=== PATIENT | male | born 1970 | race Caucasian/White ===

== ENCOUNTER 2024-07-22 15:32 | Emergency (ER) | payer BC, SELFPAY ==
[2024-07-22 15:40] VITALS: BP 138/83; PULSE 62; RESP 18; TEMP 36.7; O2SAT 96; BMI 33.7
--- NOTE | 2024-07-22 15:58 | CRLHL7_ITS ---
For Patients: As a result of the Century Cures Act, medical imaging exams and procedure reports are released immediately into your electronic medical record. You may view this report before your referring provider. If you have questions, please contact your health care provider. Indication: Injury Technique: Three views of the right hand Comparison: None Findings: Normal alignment and mineralization. There is no acute fracture, dislocation or suspicious bony lesion. Metacarpal is noted deformity of the small finger, compatible with sequela of old trauma. Joints are preserved. Soft tissues are unremarkable. Impression: No acute osseous findings. Dictated by Meng Cain MD @ 07/22/2024 4:56:54 PM (Electronically Signed)
--- OUTSIDE RECORDS SUMMARY | 2024-07-22 16:25 | XMS_ITS | Clinical Summary ---
Author Organization [employer] [facility] Address [place], [place] [address] Care Team Providers Care Photo Finisher Name Role Phone Fanta Steele MD Primary Care Prov ider Allergies No known active allergies Medications Medication Sig Dispensed Refills Start Date End Date Status omeprazole (PRILOSEC) 20 mg Delayed-Release capsuleIndications: Gastroesophageal reflux disease, unspecified whether esophagitis present Take 1 Capsule (20 mg) by mouth once daily before a meal. 90 Capsule 3 03/25/2024 Active atorvastatin (LIPITOR) 20 mg tabletIndications:H yperlipidemia, unspecified hyperlipidemia type Take 1 Tablet (20 mg) by mouth at bedtime. 90 Tablet 3 03/25/2024 Active naloxone (Narcan) 4 mg/actuation nasal sprayIndications:Op ioid use disorder in remission Inhale 1 [place] into affected nostril(s) each time if needed for Patient Diff To Arouse or Resp Rate < 8 / min (Overdose). Additional doses may be given every 2 to 3 minutes until emergency medical assistance arrives. 2 Each 03/25/2024 Active FLUoxetine (PROZAC) 20 mg capsuleIndications: Anxiety,Depression, recurrent (HC) Take 3 Capsules (60 mg) by mouth once daily in the morning. 270 Capsule 3 06/17/2024 Active losartan (COZAAR) 100 mg tabletIndications:H TN (hypertension) Take 1 Tablet (100 mg) by mouth once daily. 30 Tablet 2 07/18/2024 Active busPIRone (BUSPAR) 10 mg tabletIndications:A nxiety,Depression, recurrent (HC) Take 1 tablet in AM and 1.5 tablets in PM for 3 days then take 1.5 tablets twice daily for 3 days, then take 1.5 tablets in AM and 2 tablets in PM for 3 days then take 2 tablets twice daily 120 Tablet 2 07/18/2024 Active Suboxone 8-2 mg sublingual filmIndications:Opi oid use disorder in remission Place 1 Film under the tongue once daily. 30 Film 07/18/2024 Active losartan (COZAAR) 50 mg tabletIndications:H TN (hypertension) Take 1 Tablet (50 mg) by mouth once daily. 30 Tablet 3 04/26/2024 4 Discontinu ed(Reorder (E-cancel not sent)) Suboxone 8-2 mg sublingual filmIndications:Opi oid use disorder in remission Place 1 Film under the tongue once daily. 30 Film 06/17/2024 Discontinu ed(Reorder (E-cancel not sent)) busPIRone (BUSPAR) 10 mg tabletIndications:A nxiety,Depression, recurrent (HC) Take 1/2 tab (5mg) twice daily for 5 days. Then 1/2 tab ( 5mg) in AM and 1 tablet ( 10mg) in PM for 5 days, Then 1 tablet ( 10mg) twice daily for 5 days. Then 1 tablet (10mg) in AM and 1.5 tabs (15mg) in PM for 5 days. Then 1.5 tablets (15mg) twice daily. If dizziness or other side effects occur at anytime during the increase, reduce back to last tolerated dose and continue with that dose for another 5 days before attempting to increase again. 65 Tablet 3 06/17/2024 Discontinu ed(Reorder (E-cancel not sent)) Active Problems Problem Noted Date Diagnosed Date Opioid use disorder in remission 03/25/2024 HTN (hypertension) 03/25/2024 Hyperlipidemia 03/25/2024 Gastroesophageal reflux disease 03/25/2024 Mood disorder 03/25/2024 Tobacco use disorder 03/25/2024 Cocaine use 03/25/2024 Encounters Date Type Department Care Team Description 07/22/2024 Nurse Triage [facility] [address] [place], [place] [id number] Fanta Steele MD Finger Injury (10 days ago- not improving ) 07/18/2024 7:45 AM [facility] Office Visit [facility] [address] [place] [address] Fanta Steele MD Medication Management (Feeling more tired then usual - has been working a lot of hours lately. / Depression is about the same ); Addiction 07/18/2024 Travel 06/17/2024 2:40 PM CDT Office Visit [facility] [address] [place] [address] Fanta Steele MD Addiction; Medication Management; Anxiety 06/17/2024 Travel 06/08/2024 Telephone [facility] [address] [place] [address] Fanta Steele MD Questions (appointment-med check ) 05/30/2024 Refill [facility] [address] [place] [address] Fanta Steele MD Refill Request (Suboxone) 04/29/[address] [address] Fanta Steele MD Refill Request (Suboxone 8-2 mg sublingual film) 04/26/2024 8:10 AM CDT Office Visit [facility] [address] [place] [address] Fanta Steele MD Follow Up (addiction/); Depression (Been out of depression medication - been having a hard time) 04/26/2024 Travel from Last 3 Months Immunizations Name Administration Dates Next Due COVID-19 vaccine ([employer] 30mcg/0.3mL) [facility] [place] 01/23/2021,12/28/2020 DTP 07/13/1974 Tdap 08/13/2021,05/17/2008 Tdap, Unspecified 10/09/2022 Social History Tobacco Use Types Packs/Day Years Used Date Smoking Tobacco: Every Day Cigarettes Smokeless Tobacco: Never Tobacco Cessation:Ready to Q uit: Not Asked; Counseling Given: Not Answered Alcohol Use Standard Drinks/Week Comments Not Currently 0 (1 standard drink = 0.6 oz pur e alcohol) PHQ-2 Answer Date Recorded PHQ-2 TOTAL SCORE 2 06/17/2024 Social Connections Answer Date Recorded Do you often feel lonely or isolated from those around you? 0 03/07/2024 Financial Resource Strain Answer Date R ecorded Difficulty of Paying Living Expenses 3 03/07/2024 Difficulty of Paying Living Expenses Not on file 03/07/2024 Food Insecurity Answer Date Recorded Do you worry your food will run out before you are able to buy more? 1 03/07/2024 Transportation Needs Answer Date Record ed Does lack of transportation keep you from medica l appointments? 1 03/07/2024 Does lack of transportation keep you from work, meetings or getting things that you need? 1 03/07/2024 Housing Stability Answer Date Recorded What is your housing situation today? 1 03/07/2024 Sex and Gender Information Value Date Recorded Sex Assigned at Not on file Gender Identity Not on file Sexual Orientation Not on file Obstetrics History Last Filed Vital Signs Vital Sign Reading Time Taken Comments Blood Pressure 170/93 07/18/2024 7:57 AM [facility] Has not yet taken medication today. Pulse 62 07/18/2024 7:57 AM [employer] [facility] [facility] Temperature 36.7 C (98 F) 03/07/2024 11:41 AM CDT Respiratory Rate 20 06/28/2015 2:30 AM [employer] [facility] [facility] Oxygen Saturation 97% 07/18/2024 7:5 7 AM [employer] [facility] Inhaled Oxygen Concentration - - Weight - - Height - - Body Mass Index - - Plan of Treatment Upcoming Encounters Date Type Department Care Team (Late st Contact Info) Description 08/22/2024 8:10 AM [employer] [facility] [facility] Office Visit [facility] [address] [place] [address] Fanta Steele MD [address] [place] [address] Health Maintenance Due Date Last Done Comments Pneumococcal series for age 6-64 (1 of 2 - PCV) 1974 HIV for age 15-65 1983 BMI (ht and wt on same day) for age 18+ 1986 Hepatitis C screening for age 18-79 1986 Colonoscopy through age 75 2013 Zoster (shingles) series for age 50+ (1 of 2) 2018 COVID-19 vaccine series (2023- season) 2024 01/23/2021, 12/28/2020 Influenza for age 50-64 04/24/2024 Depression screening for age 12+ 06/17/2025 06/17/20 Lipids for age 45-75 03/07/2029 03/07/2024 Tetanus booster 10/09/2032 10/09/2022, 07/25, 05/17/2008 Tdap Completed 10/09/2022, 07/25, 05/17/2008 Procedures Procedure Name Priority Date/Time Associated Diagnosis Comments BASIC METABOLIC PANEL Routine 07/18/2024 9:04 AM [facility] HTN (hypertension) DRUG MONITORING TEMPLATE ([facility] REFLEX ONLY) Routine 06/17/2024 2:50 PM CDT DRUG MONITORING GABAPENTIN QUANTITATIVE URINE ([facility]) Routine 06/17/2024 2:50 PM CDT Opioid use disorder in remission DRUG MONITORING, BUPRENORPHINE, WITH CONFIRMATION, INCLUDES NALOXONE, URINE ([facility]) Routine 06/17/2024 2:50 PM CDT Opioid use disorder in remission DRUG MONITORING, FENTANYL, WITH CONFIRMATION, URINE ([facility]) Routine 06/17/2024 2:50 PM CDT Opioid use disorder in remission DRUG MONITORING, PANEL 7 WITH CONFIRMATION, URINE ([facility]) Routine 06/17/2024 2:50 PM CDT Opioid use disorder in remission BASIC METABOLIC PANEL Routine 04/26/2024 8:53 AM CDT HTN (hypertension) COMPLIANCE DRUG ANALYSIS Routine 04/26/2024 8:47 AM CDT Opioid use disorder in remission LIPID PANEL Routine 03/07/2024 12:41 PM CDT Chest pain in adult Screening cholesterol level from Last 3 Months or Most Recently Relevant to Health Maintenance Results * (ABNORMAL) BASIC METABOLIC PANEL (07/18/2024 9:04 AM [facility]) Only the most recent of2 resultswithin the time period is included. GLUCOSE 104(H) 65 - 99 mg/dL [facility] Comment: Fasting reference interval For someone without known diabetes, a glucose value between 100 and 125 mg/dL is consistent with prediabetes and should be confirmed with a follow-up test. UREA NITROGEN (BUN) 20 7 - 25 mg/dL [facility] CREATININE 0.89 0.70 - 1.30 mg/dL [facility] EGFR 101 > OR = 60 mL/min/1. 73m2 [facility] BUN/CREATININE RATIO SEE NOTE: 6 - 22 (calc) [facility] Comment: Not Reported: BUN and Creatinine are within reference range. SODIUM 138 135 - 146 mmol/L [facility] POTASSIUM 4.9 3.5 - 5.3 mmol/L [facility] CHLORIDE 103 98 - 110 mmol/L [facility] CARBON DIOXIDE 27 20 - 32 mmol/L [facility] ELECTROLYTE BALANCE 8 7 - 17 mmol/L (calc) [facility] CALCIUM 9.3 8.6 - 10.3 mg/dL [facility] Blood BLOOD SPECIMEN / Unknown 07/18/2024 9:04 AM [facility] 07/18/2024 9:05 AM [facility] Narrative [facility] - 07/19/2024 5:16 AM [facility] FASTING:YES FASTING: YES Fanta Steele MD CHEMISTRY [facility] [address] [place] [address], [facility] [address] [place] [address] * DRUG MONITORING TEMPLATE ([facility] REFLEX ONLY) (06/17/2024 2:50 PM CDT) DRUG MONITORING TEMPLATE NOTES AND COMMENTS [facility] Comment: This drug testing is for medical treatment only. Analysis was performed as non-forensic testing and these results should be used only by healthcare providers to render diagnosis or treatment, or to monitor progress of medical conditions. LDT Notes: Confirmation tests were developed and their analytical performance characteristics have been determined by [facility]. It has not been cleared or approved by the FDA. This assay has been validated pursuant to the CLIA regulations and is used for clinical purposes. Healthcare Providers needing Interpretation assistance, please contact us at [phone] ( ) M-F, 8am to 10pm EST 06/17/2024 2:50 PM CDT 06/17/2024 2:52 PM CDT Fanta Steele MD LABORATORY Performing Organization Address City/[facility]/ZIP Co de Phone Number [facility] [address] [place] [address], [place] [phone] [facility] [address] [place] [address] * DRUG MONITORING, FENTANYL, WITH CONFIRMATION, URINE ([facility]) (06/17/2024 2:50 PM CDT) FENTANYL NEGATIVE <0.5 ng/mL [facility] Urine URINE SPECIMEN / Unknown 06/17/2024 2:50 PM CDT 06/17/2024 2:52 PM CDT Fanta Steele MD SEND OUTS Performing Organization Address [facility]/ZIP Co de Phone Number [facility] [address] [place] [address], [place] [phone] [facility] [address] [place] [address] * DRUG MONITORING, GABAPENTIN, QUANTITATIVE, URINE ([facility]) (06/17/2024 2:50 PM CDT) GABAPENTIN NEGATIVE <1000 ng/mL [facility] GABAPENTIN COMMENTS [facility] Comment:See LDT Notes Urine URINE SPECIMEN / Unknown 06/17/2024 2:50 PM CDT 06/17/2024 2:52 PM CDT Fanta Steele MD URINE Performing Organization Address [facility] Co de Phone Number [facility] [address] [place] [address], [facility] [address] [place] [address] * DRUG MONITORING, PANEL 7 WITH CONFIRMATION, URINE ([facility]) (06/17/2024 2:50 PM CDT) ALCOHOL METABOLITES NEGATIVE <500 ng/mL [facility] AMPHETAMINES NEGATIVE <500 ng/mL [facility] BARBITURATES NEGATIVE <300 ng/mL [facility] BENZODIAZEPINES NEGATIVE <100 ng/mL [facility] COCAINE METABOLITE NEGATIVE <150 ng/mL [facility] 6 ACETYLMORPHINE NEGATIVE <10 ng/mL [facility] MARIJUANA METABOLITE NEGATIVE <20 ng/mL [facility] METHADONE METABOLITE NEGATIVE <100 ng/mL [facility] OPIATES NEGATIVE <100 ng/mL [facility] OXYCODONE NEGATIVE <100 ng/mL [facility] DRUG COMPLIANCE CREATININE 41.2 > or = 20.0 mg/dL [facility] PH URINE 7.6 4.5 - 9.0 [facility] OXIDANT NEGATIVE <200 mcg/mL [facility] Urine URINE SPECIMEN / Unknown 06/17/2024 2:50 PM CDT 06/17/2024 2:52 PM CDT Fanta Steele MD URINE [facility] [address] [place] [address], [place] [phone] [facility] [address] [place] [address] * DRUG MONITORING, BUPRENORPHINE, WITH CONFIRMATION, INCLUDES NALOXONE, URINE ([facility]) (06/17/2024 2:50 PM CDT) BUPRENORPHINE NEGATIVE <5 ng/mL [facility] Urine URINE SPECIMEN / Unknown 06/17/2024 2:50 PM CDT 06/17/2024 2:52 PM CDT Fanta Steele MD URINE [facility] [address] [place] [address], [place] [phone] [facility] [address] [place] [address] * (ABNORMAL) COMPLIANCE DRUG ANALYSIS (04/26/2024 8:47 AM CDT) 6-MONOACETYL MORPHINE NEG NEG ng/mL 04/28/2024 10:46 AM T [facility] AMPHETAMINE URINE NEG <=500 ng/mL 04/28/2024 10:46 AM CDT [facility] BARBITURATE URINE NEG <=200 ng/mL 04/28/2024 10:46 AM T [facility] BENZODIAZEPINE URINE NEG <=100 ng/mL 04/28/2024 10:46 AM CDT [facility] BUPRENORPHRINE URINE POS(A) <=5 ng/mL 12/2023 10:46 AM T [facility] COCAINE METAB URINE NEG <=300 ng/mL 04/28/2024 10:46 AM T [facility] ETHYLGLUCURONIDE URINE NEG <=250 ng/mL 04/28/2024 10:46 AM T [facility] FENTANYL URINE NEG <=4 ng/mL 04/28/2024 10:46 AM T [facility] METHADONE URINE NEG <=300 ng/mL 04/28/2024 10:46 AM [facility] OPIATES URINE NEG <=300 ng/mL 04/28/2024 10:46 AM [facility] OXYCODONE URINE NEG <=100 ng/mL 04/28/2024 10:46 AM [facility] PROPOXYPHENE URINE NEG <=300 ng/mL 04/28/2024 10:46 AM [facility] THC 50 URINE NEG <=50 ng/mL 04/28/2024 10:46 AM [facility] TRAMADOL NEG <=200 ng/mL 04/28/2024 10:46 AM [facility] PH URINE 7.9(H) 5.0 - 7.0 04/28/2024 10:46 AM [facility] CREAT UR 61 >=20 mg/dL 04/28/2024 10:46 AM [facility] MASS SPECTROMETRY URINE See Below 04/28/2024 10:46 AM [facility] Comment:Acetaminophen, Bupre norphine metabolite, Hydrocodone and Norhydrocodone present. Urine URINE SPECIMEN / Unknown Non-Blood / Unknown 04/26/2024 8:47 AM [facility] 04/26/2024 8:47 AM [facility] - 04/28/2024 10:46 AM [facility] Current Outpatient Medications: atorvastatin (LIPITOR) 20 mg tablet, Take 1 Tablet (20 mg) by mouth at bedtime. FLUoxetine 20 mg tablet, Take 1 Tablet (20 mg) by mouth once daily. losartan (COZAAR) 25 mg tablet, Take 1 Tablet (25 mg) by mouth once daily. naloxone (Narcan) 4 mg/actuation nasal spray, Inhale 1 [place] into affected nostril(s) each time if needed for Patient Diff To Arouse or Resp Rate < 8 / min (Overdose). Additional doses may be given every 2 to 3 minutes until emergency medical assistance arrives. omeprazole (PRILOSEC) 20 mg Delayed-Release capsule, Take 1 Capsule (20 mg) by mouth once daily before a meal. Suboxone 8-2 mg sublingual film, Place 1 Film under the tongue once daily. Place film under the tongue until completely dissolved. Do not chew or swallow film. No current facility-administered medications for this visit. As of 04/26/2024 Release to patient->Immediate Fanta Steele MD URINE [address] [place] [address], * (ABNORMAL) LIPID PANEL (03/07/2024 12:41 PM CDT) [facility] CHOLESTEROL,TOTAL 233(H) 100 - 199 mg/dL 03/08/2024 5:17 AM CDT [facility] Comment: Cholesterol, Total Reference Ranges Desirable <200 mg/dL Borderline 200-239 mg/dL High >=240 mg/dL TRIGLYCERIDES 209(H) <150 mg/dL 03/08/2024 5:17 AM CDT [facility] HDL CHOLESTEROL 37(L) >40 mg/dL 5:17 AM CDT [facility] NON-HDL CHOLESTEROL 196(H) <145 mg/dl 03/08/2024 5:17 AM CDT [facility] CHOL/HDL RATIO 6.30(H) <4.50 03/08/2024 5:17 AM CDT [facility] LDL CHOLESTEROL 154(H) <=130 mg/dL 03/08/2024 5:17 AM CDT [facility] VLDL CHOLESTEROL 42(H) <=30 mg/dL 03/08/2024 5:17 AM CDT [facility] PROVIDER ORDERED STATUS RANDOM 03/08/2024 5:17 AM CDT [facility] Blood BLOOD SPECIMEN / Unknown Venipuncture / Unknown 03/07/2024 12:41 PM CDT 03/07/2024 12:42 PM CDT Fanta Steele MD CHEMISTRY [facility] [address] [place] [address], from Last 3 Months or Most Recently Relevant to Health Maintenance Care Teams Photo Finisher Relationship Specialty Start Date End Date Fanta Steele MD [address] [place], [place] [id number] PCP - General Family Practice 03/07/24
--- NOTE | 2024-07-22 16:52 | ED.UPPEXIN ---
HPI - Extremity Injury (Upper) General Date Seen: 07/22/24 Chief Complaint: Extremity Pain/Injury, Upper Stated Complaint: injured rt hand Time Seen by Provider: 07/22/24 15:34 Source: patient Mode of arrival: ambulatory Limitations: no limitations History of Present Illness HPI narrative: Patient is a 54-year-old male presenting to the emergency department for injury to his right middle finger. States some lives this he injured the finger while at work and dislocated at the MCP joint. He was able to relocate it on his own and initially there was loss swelling but pain has been improving. Then 2 days ago while working again he was holding up a piece of steel when it slipped and pulled on his same finger. Since then he has been having worsening pain to the finger worse at the middle finger MCP joint. Does have some pain with movement. No other injuries noted. Related Data Home Medications ?Medication ?Instructions ?Recorded ?Confirmed atorvastatin .ROUTE 07/22/24 fluoxetine 40 mg capsule 40 mg PO DAILY 07/22/24 07/22/24 Allergies Allergy/AdvReac Type Severity Reaction Status Date / Time No Known Drug Allergies Allergy Verified 07/22/24 15:46 Review of Systems Narrative: Pertinent systems reviewed and were negative unless stated in HPI Exam Narrative: Exam Narrative: Const: Well-nourished, Well-developed, in no distress Eyes: PERRL, no conjunctival injection, and symmetrical lids HENT: Atraumatic external nose and ears. Moist mucous membranes. Removed MSK:Extremities w/o deformity, mild decreased range of motion to the right middle finger at the MCP joint. No tenderness noted with full extension, there is some mild swelling seen throughout the finger. Note tenderness noted to palpation of the volar aspect of the middle finger Skin: Warm, Dry. No rashes or lesions. Neuro: Normal Muscle tone, No focal neurological deficits. Psych: Awake, Alert, & Oriented x3. Appropriate mood and affect. Const: Vital Signs, click to edit/add: Vital Signs - 24 hr 07/22/24 15:40 Temperature 98.0 F Pulse Rate [Right Pulse Oximeter] 62 Respiratory Rate 18 Blood Pressure [Ri ght Upper Arm] 138/83 Pulse Oximetry 96 Oxygen Delivery Me thod Room Air Course Vital Signs Vital signs: Initial Vital Signs Temperature 98.0 F 07/22/24 15:40 Temperature Source Temporal Artery Scan 07/22/24 15:40 Pulse Rate 62 07/22/24 15:40 Pulse Rhythm Regular 07/22/24 15:40 Pulse Strength 3+ Normal 07/22/24 15:40 Respiratory Rate 18 07/22/24 15:40 Blood Pressure 138/83 07/22/24 15:40 Blood Pressure Mean 101 07/22/24 15:40 Blood Pressure Position Sitting 07/22/24 15:40 Pulse Oximetry 96 07/22/24 15:40 Oxygen Delivery Method Room Air 07/22/24 15:40 Vital Signs Temperature 98.0 F 07/22/24 15:40 Pulse Rate 62 07/22/24 15:40 Respiratory Rate 18 07/22/24 15:40 Blood Pressure 138/83 07/22/24 15:40 Pulse Oximetry 96 07/22/24 15:40 Oxygen Delivery Method Room Air 07/22/24 15:40 Temperature 98.0 F 07/22/24 15:40 Pulse Rate 62 07/22/24 15:40 Respiratory Rate 18 07/22/24 15:40 Blood Pressure 138/83 07/22/24 15:40 Pulse Oximetry 96 07/22/24 15:40 Oxygen Delivery Method Room Air 07/22/24 15:40 MDM - Extremity Injury (Upper) Imaging Data Right hand x-ray: Attestation: I have reviewed the pertinent imaging results. Radiologist's impression: No acute osseous findings. Dictated by Meng Cain MD @ 07/22/2024 4:56:54 PM Discharge Plan Discharge Clinical Impression: Finger sprain Qualifiers: Encounter type: initial encounter Finger: middle finger Sprain of finger site: metacarpophalangeal joint Laterality: right Qualified Code(s): S63.652A - Sprain of metacarpophalangeal joint of right middle finger, initial encounter Patient Disposition: Home, Self-Care Condition: Stable Instructions: Finger Sprain (ED) Additional Instructions: Your appears to have sprained your middle finger. Keep it jerrica tape until symptoms improve. Take Tylenol and ibuprofen for pain Prescriptions: No Action fluoxetine 40 mg capsule 40 mg PO DAILY atorvastatin .ROUTE Follow Up/Referrals: Fanta Steele MD [Primary Care Provider] - Stand Alone [facility] Instructions
== END 2024-07-22 17:22 | disposition home or self-care (01) ==
PROVIDERS: Emergency Provider Student in an Organized Health Care Education/Training Program; PCP Student in an Organized Health Care Education/Training Program
DX: S63.652A Sprain of metacarpophalangeal joint of right middle finger, initial encounter (principal); X50.1XXA Overexertion from prolonged static or awkward postures, initial encounter
CPT/HCPCS: 73130; 99283

== ENCOUNTER 2024-10-25 12:37 | Emergency (ER) | payer BC, SELFPAY ==
[2024-10-25 12:42] VITALS: BP 130/77; PULSE 78; RESP 18; TEMP 36.1; O2SAT 97; BMI 35.2
--- NOTE | 2024-10-25 12:44 | ED.GENADULT ---
HPI - General Adult General Chief complaint: Back Injury/Pain Stated complaint: Back pain Time Seen by Provider: 10/25/24 12:44 History of Present Illness HPI narrative: Over exerted self-last week and over the weekend feeling tired and a little sore. Today woke up and left knee hurts, right shoulder, lower back, and felt as if Achillies tendon hurts. having an ache and dull pain in the LLQ for the past 2 days . 54-year-old man presenting to the emergency department with concern of radiating low back pain. 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 Rested over the weekend or least the next day though was marked increase in back pain including sharp and burning pain down the back of his right buttock to back find to upper calf. Next morning similar feelings in the left. Has also begun to feel more instability in the left knee. Has a history of what sounds like cleanout, meniscal injury?. Also some reconstruction history in the right knee. Once he lays down on the bed exam bed he has more just pain in the upper buttock palpate to the left SI joint area. What might have pushed him further to come in is a history of right Achilles disruption and as this pain radiated down or he he started to feel like maybe this was leading loose again. Really did not want to go through that issue again. Related Data Home Medications ?Medication ?Instructions ?Recorded ?Confirmed atorvastatin .Route 07/22/24 fluoxetine 40 mg capsule 40 mg PO DAILY 07/22/24 10/25/24 buprenorphine 8 mg-naloxone 2 mg 1 film sublingual DAILY 10/25/24 10/25/24 sublingual film losartan 100 mg tablet mg DAILY 10/25/24 omeprazole 20 mg capsule,delayed 20 mg PO DAILY 10/25/24 10/25/24 release Allergies Allergy/AdvReac Type Severity Reaction Status Date / Time No Known Drug Allergies Allergy Verified 10/25/24 12:48 Review of Systems Status of ROS: Reports: 6 or more systems reviewed and unremarkable except as noted in History and below [facility] Social History Smoking Status: Current every day smoker What tobacco products do you use: cigarettes How often do you have a drink containing alcohol: never How often do you have six or more drinks on one occasion: Never AUDIT-C Alcohol total score: 0 Non-prescribed substance use: denies use service: No Exam Narrative: Exam Narrative: Very pleasant. Changes since to sitting without significant difficulty. Little more sore to lay down I think. Tender in the right SI joint. Seems a little weaker hesitant with flexion of the right knee. Sore also with left SI joint. Negative Bladimir's. Negative straight leg raise bilaterally. I do not appreciate an effusion to his knees though clearly with postoperative changes. No instability appreciated to varus or valgus stressors of the left knee. Normal Teena's. Mildly uncomfortable to left mid abdominal palpation. Const: Vital Signs, click to edit/add: Vital Signs - 24 hr 10/25/24 12:42 Temperature 97.0 F L Pulse Rate [Pulse Oximeter] 78 Respiratory Rate 18 Blood Pressure [Ri ght Upper Arm] 130/77 Pulse Oximetry 97 Oxygen Delivery Me thod Room Air Documenting provider has reviewed patient's vital signs: yes Course Vital Signs Vital signs: Initial Vital Signs Temperature 97.0 F L 10/25/24 12:42 Temperature Source Temporal Artery Scan 10/25/24 12:42 Pulse Rate 78 10/25/24 12:42 Respiratory Rate 18 10/25/24 12:42 Blood Pressure 130/77 10/25/24 12:42 Blood Pressure Mean 94 10/25/24 12:42 Blood Pressure Position Sitting 10/25/24 12:42 Pulse Oximetry 97 10/25/24 12:42 Oxygen Delivery Method Room Air 10/25/24 12:42 Vital Signs Temperature 97.0 F L 10/25/24 12:42 Pulse Rate 78 10/25/24 12:42 Respiratory Rate 18 10/25/24 12:42 Blood Pressure 130/77 10/25/24 12:42 Pulse Oximetry 97 10/25/24 12:42 Oxygen Delivery Method Room Air 10/25/24 12:42 Temperature 97.0 F L 10/25/24 12:42 Pulse Rate 78 10/25/24 12:42 Respiratory Rate 18 10/25/24 12:42 Blood Pressure 130/77 10/25/24 12:42 Pulse Oximetry 97 10/25/24 12:42 Oxygen Delivery Method Room Air 10/25/24 12:42 Medical Decision Making MDM Narrative Medical decision making narrative: Distribution of described symptoms suggest a sciatica. Admittedly this is a little nonspecific of a diagnosis. Seems to have concurrent sacroiliac joint pain and what I think might be compensatory left knee pain. Without specific trauma I do not think we need to do any imaging here today. Would offer steroids and recommending anti-inflammatory otherwise. Possibly Flexeril. Did also discuss opiate pain medication which he thought might be helpful Upon discharge, flag raised for history of Suboxone and apparently filled short-acting opiate yesterday; the latter he noted unfamiliarity. Ultimately discharged with prednisone and Flexeril and recommendations for ibuprofen acetaminophen. See patient discharge plan for further discussion See handout on low back pain, herniated disc and sacroiliac pain. You seem to have elements of all of these. I am not convinced that you have a herniated disc but the exercises I think are relevant. You do seem to have something in the continuum of a sciatica. With a little food, consider taking ibuprofen regularly dosed over the next few days maybe 600 mg 3 times daily or alternatively up to 500 mg naproxen 2 times daily. Either of these can be combined with up to 1000 mg of acetaminophen per dose. From [facility], I am also prescribing a course of prednisone and Flexeril a ?muscle relaxer? really functioning more as a bit of a sedative. <del>Also</del> <del>if</del> <del>really</del> <del>needed</del> <del>some</del> <del>Percocet,</del> <del>an</del> <del>opiate.</del> <del>Keep</del> <del>in</del> <del>mind</del> <del>that</del> <del>each</del> <del>tablet</del> <del>contains</del> <del>325</del> <del>mg</del> <del>of</del> <del>acetaminophen.</del> If your pain is continuing beyond a week, I would follow up for re-evaluation. Physical therapy might be beneficial. Medical Records Medical records reviewed: Yes I reviewed the patient's medical records Discharge Plan Discharge Clinical Impression: Lumbar radiculopathy, Sacroiliac joint pain Patient Disposition: Home, Self-Care Condition: Stable Additional Instructions: See handout on low back pain, herniated disc and sacroiliac pain. You seem to have elements of all of these. I am not convinced that you have a herniated disc but the exercises I think are relevant. You do seem to have something in the continuum a sciatica. With a little food, consider taking ibuprofen regularly dosed over the next few days maybe 600 mg 3 times daily or alternatively up to 500 mg naproxen 2 times daily. Either of these can be combined with up to 1000 mg of acetaminophen per dose. From [facility], I am also prescribing a course of prednisone and Flexeril a ?muscle relaxer? really functioning more as a bit of a sedative. Also if really needed some Percocet, an opiate. Keep in mind that each tablet contains 325 mg of acetaminophen. If your pain is continuing beyond a week, I would follow up for re-evaluation. Physical therapy might be beneficial. Prescriptions: No Action fluoxetine 40 mg capsule 40 mg PO DAILY atorvastatin .Route omeprazole 20 mg capsule,delayed release(DR/EC) 20 mg PO DAILY losartan 100 mg tablet DAILY buprenorphine-naloxone 8-2 mg film 1 film sublingual DAILY Follow Up/Referrals: Fanta Steele MD [Primary Care Provider] - Stand Alone Forms: [employer] Info Instructions
--- OUTSIDE RECORDS SUMMARY | 2024-10-25 13:28 | XMS_ITS | Clinical Summary ---
Author Organization [facility] Address [address] [place] [id number] Care Team Providers Care Supervisor Cured Meats Name Role Phone Fanta Steele MD Primary Care Prov ider Allergies No known active allergies Medications omeprazole (PRILOSEC) 20 mg Delayed-Release capsuleIndications :Gastroesophageal reflux disease, unspecified whether esophagitis present Take 1 Capsule (20 mg) by mouth once daily before a meal. 90 Capsule 3 03/25/20 24 Active atorvastatin (LIPITOR) 20 mg tabletIndications: Hyperlipidemia, unspecified hyperlipidemia type Take 1 Tablet (20 mg) by mouth at bedtime. 90 Tablet 3 03/25/20 24 Active naloxone (Narcan) 4 mg/actuation nasal sprayIndications:O pioid use disorder in remission Inhale 1 [place] into affected nostril(s) each time if needed for Patient Diff To Arouse or Resp Rate < 8 / min (Overdose). Additional doses may be given every 2 to 3 minutes until emergency medical assistance arrives. 2 Each 03/25/20 24 Active FLUoxetine (PROZAC) 20 mg capsuleIndications :Anxiety,Depressio n, recurrent Take 3 Capsules (60 mg) by mouth once daily in the morning. 270 Capsule 3 06/17/20 24 Active Additional Information Patient taking differently:60 mg Oral Q AM,BiD, Reported on 10/24/2024 acetaminophen (TYLENOL EXTRA STRGTH) 500 mg tablet Take 500-1,000 mg by mouth every 6 hours if needed. 10/09/19 23 Active busPIRone (BUSPAR) 10 mg tabletIndications: Anxiety,Depression , recurrent Take 2 Tablets (20 mg) by mouth two times daily. 120 Tablet 3 08/22/20 24 Active buprenorphine-nalo xone (SUBOXONE) 8-2 mg sublingual filmIndications:Op ioid use disorder in remission Place 1 Film under the tongue once daily. Place film under the tongue until completely dissolved. Do not chew or swallow film. 30 Each 10/27/19 25 Active losartan (COZAAR) 100 mg tabletIndications: HTN (hypertension) Take 1 Tablet (100 mg) by mouth once daily. 60 Tablet 10/25/19 25 Active losartan (COZAAR) 100 mg tabletIndications: HTN (hypertension) Take 1 Tablet (100 mg) by mouth once daily. 30 Tablet 2 07/18/20 24 025 Discontin ued(Reord er (E-cancel not sent)) Suboxone 8-2 mg sublingual filmIndications:Op ioid use disorder in remission Place 1 Film under the tongue once daily. 8 Film 09/20/19 25 025 Discontin ued(*Med complete/ Regimen complete/ Level of care change) buprenorphine-nalo xone (SUBOXONE) 8-2 mg sublingual filmIndications:Op ioid use disorder in remission Place 1 Film under the tongue once daily. Place film under the tongue until completely dissolved. Do not chew or swallow film. 30 Each 09/28/19 25 025 Discontin ued(Reord er (E-cancel not sent)) Active Problems Problem Noted Date Diagnosed Date Opioid use disorder in remission 03/25/2024 HTN (hypertension) 03/25/2024 Hyperlipidemia 03/25/2024 Gastroesophageal reflux disease 03/25/2024 Mood disorder 03/25/2024 Tobacco use disorder 03/25/2024 Cocaine use 03/25/2024 Encounters Date Type Department Care Team Description 10/24/2024 8:45 AM [employer]IPLE [employer] Phone Office Visit [facility] [address] [place] [address] Ulysses Dalton MD Medication Management (suboxone ) 10/24/2024 Travel 10/21/2024 Travel 09/28/2024 7:55 AM [employer] Office Visit [facility] [address] [place] [address] Ulysses Dalton MD Medication Management (suboxone ); Fatigue 09/28/2024 Travel 09/21/2024 Telephone [facility] [address] [place] [address] Ulysses Dalton MD Prior Authorization (Suboxone 8-2 mg sublingual film APPROVED 09/21/2024 to 09/21/2025) 09/19/2024 Refill [facility] [address] [place] [address] Fanta Steele MD Refill Request (Suboxone ) 08/22/2024 8:10 AM [employer] Phone Office Visit [facility] [address] [place] [address] Fanta Steele MD Medication Management (Suboxone,); Blood Pressure (No home reading ) 08/22/2024 Travel 08/19/2024 Telephone [facility] [address] [place] [address] Fanta Steele MD Questions (Suboxone ) 08/19/2024 Refill [facility] [address] [place] [address] Fanta Steele MD Refill Request (SUBOXONE) 08/18/2024 Refill [facility] [address] [place] [address] Fanta Steele MD Refill Request (Suboxone) from Last 3 Months Immunizations Name Administration Dates Next Due COVID-19 vaccine ([employer] 30mcg/0.3mL) P FMDV 01/23/2021,12/28/2020 DTP 07/13/1974 Tdap 08/13/2021,05/17/2008 Tdap, Unspecified 10/09/2022 Social History Tobacco Use Types Packs/Day Years Used Date Smoking Tobacco: Every Day Cigarettes Smokeless Tobacco: Never Tobacco Cessation:Ready to Q uit: Not Asked; Counseling Given: Not Answered Alcohol Use Standard Drinks/Week Comments Not Currently 0 (1 standard drink = 0.6 oz pur e alcohol) PHQ-2 Answer Date Recorded PHQ-2 TOTAL SCORE 3 09/28/2024 Social Connections Answer Date Recorded Do you [...] is your housing situation today? 1 03/07/2024 Utilities Answer Date Recorded Do you have trouble paying f or utilities (for example, heat, electricity, water, phone)? 1 03/07/2024 Sex and Gender Information Value Date Recorded Sex Assigned at Not on file Legal Sex Male 6:59 AM [employer]IPLE VAL[employer] Gender Identity Not on file Sexual Orientation Not on file Obstetrics History Last Filed Vital Signs Vital Sign Reading Time Taken Comments Blood Pressure 150/84 09/28/2024 8:07 AM [employer] Pulse 65 09/28/2024 7:59 AM [employer]LE [employer] Temperature 36.7 C (98 F) 03/07/2024 11:41 AM CDT Respiratory Rate 20 06/28/2015 2:30 AM [employer] Oxygen Saturation 98% 09/28/2024 7:59 AM [employer]LE [employer] Inhaled Oxygen Concentration - - Weight 98.2 kg (216 lb 6.4 oz) 09/28/2024 7:59 A M [employer] Height - - Body Mass Index - - Plan of Treatment Health Maintenance Due Date Last Done Comments HIV for age 15-65 1983 BMI (ht and wt on same day) for age 18+ 1986 Hepatitis C screening for age 18-79 1986 Pneumococcal series for age 50+ (1 of 2 - PCV) 1987 Colonoscopy through age 75 2013 Zoster (shingles) series for age 50+ (1 of 2) 2018 COVID-19 vaccine series ( season) 2024 01/23/2021, 12/28/2020 Influenza for age 50-64 04/24/2024 Depression screening for age 12+ 09/28/2025 09/28/19, 06/17/2024 Lipids for age 45-75 03/07/2029 03/07/2024 Tetanus booster 10/09/2032 10/09/2022, 07/25, 05/17/2008 Tdap Completed 10/09/2022, 07/25, 05/17/2008 Procedures Procedure Name Priority Date/Time Associated Diagnosis Comments BASIC METABOLIC PANEL Routine 09/28/2024 8:34 AM [employer]LE [employer] HTN (hypertension) COMPLIANCE DRUG ANALYSIS Routine 09/28/2024 8:33 AM [employer] Opioid use disorder in remission LIPID PANEL Routine 03/07/2024 12:41 PM CDT Chest pain in adult Screening cholesterol level from Last 3 Months or Most Recently Relevant to Health Maintenance Results * BASIC METABOLIC PANEL (09/28/2024 8:34 AM TRIPLE VALVE TE[employer]) GLUCOSE 98 65 - 99 mg/dL [facility] Comment: Fasting reference interval UREA NITROGEN (BUN) 18 7 - 25 mg/dL [facility] CREATININE 0.85 0.70 - 1.30 mg/dL [facility] EGFR 102 > OR = 60 mL/min/1. 73m2 [facility] BUN/CREATININE RATIO SEE NOTE: 6 - 22 (calc) [facility] Comment: Not Reported: BUN and Creatinine are within reference range. SODIUM 139 135 - 146 mmol/L [facility] POTASSIUM 4.9 3.5 - 5.3 mmol/L [facility] CHLORIDE 102 98 - 110 mmol/L [facility] CARBON DIOXIDE 28 20 - 32 mmol/L [facility] ELECTROLYTE BALANCE 9 7 - 17 mmol/L (calc) [facility] CALCIUM 9.4 8.6 - 10.3 mg/dL [facility] Blood BLOOD SPECIMEN / Unknown 09/28/2024 8:34 AM [employer]IPLE VALVE TE[employer] 09/28/2024 8:34 AM [employer]IPLE VALVE [employer] Ulysses Dalton MD CHEMISTRY Final Result [facility] [address] [place] [address], [facility] [address] [place] [address] * (ABNORMAL) COMPLIANCE DRUG ANALYSIS (09/28/2024 8:33 AM TRIPLE VALVE TESTER) 6-MONOACETYL MORPHINE NEG NEG ng/mL 10/03/2024 12:16 PM [facility] AMPHETAMINE URINE NEG <=500 ng/mL 10/03/2024 12:16 PM [facility] BARBITURATE URINE NEG <=200 ng/mL 10/03/2024 12:16 PM [facility] BENZODIAZEPINE URINE NEG <=100 ng/mL 10/03/2024 12:16 PM [facility] BUPRENORPHRINE URINE POS(A) <=5 ng/mL 09/24 12:16 PM [facility] COCAINE METAB URINE NEG <=300 ng/mL 10/03/2024 12:16 PM [facility] ETHYLGLUCURONIDE URINE NEG <=250 ng/mL 10/03/2024 12:16 PM [facility] FENTANYL URINE NEG <=4 ng/mL 10/03/2024 12:16 PM [facility] METHADONE URINE NEG <=300 ng/mL 10/03/2024 12:16 PM [facility] OPIATES URINE NEG <=300 ng/mL 10/03/2024 12:16 PM [facility] OXYCODONE URINE NEG <=100 ng/mL 10/03/2024 12:16 PM [facility] PROPOXYPHENE URINE NEG <=300 ng/mL 10/03/2024 12:16 PM [facility] THC 50 URINE NEG <=50 ng/mL 10/03/2024 12:16 PM [facility] TRAMADOL NEG <=200 ng/mL 10/03/2024 12:16 PM [facility] PH URINE 6.9 5.0 - 7.0 10/03/2024 12:16 PM [facility] CREAT UR 109 >=20 mg/dL 10/03/2024 12:16 PM [facility] MASS SPECTROMETRY URINE See Below 10/03/2024 12:16 PM [facility] Comment:Buprenorphine metabo lites present. Urine URINE SPECIMEN / Unknown Non-Blood / Unknown 09/28/2024 8:33 AM [employer]LE VALVE [employer] 09/28/2024 8:33 AM [facility] - 10/03/2024 12:16 PM [employer]IPLE [employer]VE TE[employer] Release to patient->Immediate us Ulysses Dalton MD URINE Final Result [facility] [address] [facility] [address] [place] [address], * (ABNORMAL) LIPID PANEL (03/07/2024 12:41 PM CDT) CHOLESTEROL,TOTAL 233(H) 100 - 199 mg/dL 03/08/2024 5:17 AM T [facility] [employer] [facility] Comment: Cholesterol, Total Reference Ranges Desirable <200 mg/dL Borderline 200-239 mg/dL High >=240 mg/dL TRIGLYCERIDES 209(H) <150 mg/dL 03/08/2024 5:17 AM CDT [facility] [employer] [facility] HDL CHOLESTEROL 37(L) >40 mg/dL 5:17 AM T [facility] NON-HDL CHOLESTEROL 196(H) <145 mg/dl 03/08/2024 5:17 AM CDT [facility] CHOL/HDL RATIO 6.30(H) <4.50 03/08/2024 5:17 AM T [facility] LDL CHOLESTEROL 154(H) <=130 mg/dL 03/08/2024 5:17 AM CDT [facility] VLDL CHOLESTEROL 42(H) <=30 mg/dL 03/08/2024 5:17 AM CDT [facility] PROVIDER ORDERED STATUS RANDOM 03/08/2024 5:17 AM CDT [facility] Blood BLOOD SPECIMEN / Unknown Venipuncture / Unknown 03/07/2024 12:41 PM CDT 03/07/2024 12:42 PM CDT us Fanta Steele MD CHEMISTRY Fi nal Result [facility] [address] [place] [address], from Last 3 Months or Most Recently Relevant to Health Maintenance Insurance [facility] OF NON-IN-ITS Care Teams Supervisor Cured Meats Relationship Specialty Start Date End Date Fanta Steele [place] [address] PCP - General Family Practice 03/07/24
== END 2024-10-25 14:39 | disposition home or self-care (01) ==
PROVIDERS: Emergency Provider Family Medicine; PCP Student in an Organized Health Care Education/Training Program
DX: M54.16 Radiculopathy, lumbar region (principal); M53.3 Sacrococcygeal disorders, not elsewhere classified
CPT/HCPCS: 99283; 99284